=== PATIENT | female | born 1945 | race American Indian/Alaskan Native ===

== ENCOUNTER 2017-03-24 11:12 | Emergency (ER) | payer OTHER ==
[2017-03-24 11:22] VITALS: RESP 16; TEMP 98.3; O2SAT 98; BMI 34.3
--- NOTE | 2017-03-24 11:56 | ED PDOC ---
Arrival/HPI - General Chief Complaint: Lower Extremity Problem/Injury Time Seen by Provider: 03/24/17 11:43 Historian: Patient - History of Present Illness Narrative History of Present Illness (Text): 03/24/17 11:55 71 year old female presents to the emergency department with bilateral knee pain worse with ambulation for the past 2 months. Denies recent trauma or injury. She states pain is better with rest. Patient reports history of right knee surgery. Patient reports she ambulates with a cane at baseline. No other associated symptoms reported. Denies fevers/chills. Time/Duration: > week Symptom Onset: Gradual Associated Symptoms (Text): None Past Medical History - Provider Review Nursing Documentation Reviewed: Yes - Pulmonary Hx Sleep Apnea: Yes - Hematological/Oncological Hx Cancer: Yes (breast left) - Musculoskeletal/Rheumatological Hx Arthritis: Yes - Psychiatric Hx Substance Use: No - Surgical History Hx Thyroidectomy: Yes Family/Social History - Physician Review Nursing Documentation Reviewed: Yes Family/Social History: Unknown Family HX Smoking Status: Never Smoked Hx Alcohol Use: No Hx Substance Use: No Allergies/Home Meds Allergies/Adverse Reactions: Allergies Penicillins Allergy (Verified 03/24/17 12:12) RASH Sulfa (Sulfonamide Antibiotics) Allergy (Verified 03/24/17 12:12) RASH Home Medications: Home Meds Medication Instructions Recorded Confirmed Anastrozole [Arimidex 1 mg Tab] 03/24/17 Aspirin [Adult Low Dose Aspirin EC] 03/24/17 Atorvastatin [Lipitor] 10 mg PO 03/24/17 B1/B2/Niacin/B12/Protease 03/24/17 [B-Complex with B-12 Tablet] Calcium Carb, Citrate/Vit D3 03/24/17 [Calcium + D3 ER Tablet] Levothyroxine Sodium [Unithroid] 03/24/17 Metoclopramide [Reglan] 03/24/17 Omeprazole Magnesium [Prilosec Otc] 03/24/17 Potassium Chloride [Klor-Con 10] 03/24/17 Tramadol HCl [Ultram] 50 mg PO 03/24/17 Triamterene/Hydrochlorothiazid 03/24/17 [Triamterene-Hctz 37.5-25 mg Cp] Zolpidem [Ambien] 03/24/17 Review of Systems - Physician Review All systems were reviewed & negative as marked: Yes Physical Exam - Physical Exam Narrative Physical Exam (Text): - Review of Systems Constitutional: Normal. absent: Fatigue, Weight Change, Fevers Eyes: Normal ENT: Normal Respiratory: Normal absent: SOB, Cough, Sputum Cardiovascular: Normal absent: Chest pain, Palpitations, Syncope Gastrointestinal: Normal absent: Abdominal pain, Diarrhea, Nausea, Vomiting Genitourinary: Normal. absent: Dysuria, Frequency, Hematuria Musculoskeletal: Bilateral knee pain. absent: Arthralgias, Back Pain, Neck Pain Skin: Normal Neurological: Normal absent: Focal Weakness Endocrine: Normal Hemo/Lymphatic: Normal Psychiatric: Normal - Physical exam Patient appears age appropriate, speaking full sentences without difficulty - Systems Exam Head: Present: Atraumatic, Normocephalic Pupils: Present: PERRL Extraocular Muscles: Present: EOMI Conjunctiva: Present: Normal Mouth: Present: Moist Mucous Membranes Neck: Present: Normal Range of Motion. No: MIDLINE TENDERNESS, Paraspinal Tenderness Respiratory/Chest: Present: Clear to Auscultation, Good Air Exchange. No: Respiratory Distress, Accessory Muscle Use, Tachypneic Cardiovascular: Present: Regular Rate and Rhythm, Normal S1, S2, Peripheral Pulses Present. No: Murmurs Abdomen: Present: Normal Bowel Sounds, No: Tenderness, Peritoneal Signs, Rebound, Guarding, Distention Back: Present: Normal Inspection. No: Midline Tenderness, Paraspinal Tenderness Upper Extremity: Present: Normal Inspection. No: Cyanosis, Edema Lower Extremity: Present: Left knee unremarkable. Full active and passive range of motion. Right knee range of motion limited due to pain. Distal neurovascular fully intact. No warmth or redness. Neurological: Present: GCS=15, Speech Normal, cranial nerves II through XII fully intact with no cerebellar abnormality, neuro-sensory fully intact. No focal neurological deficits. Skin: Present: Warm, Dry, Normal Color. No: Rashes Lymphatic: Present: OX3, NI, NC Psychiatric: Present: Alert, Oriented x 3, Normal Insight, Normal Concentration Vital Signs Reviewed: Yes Vital Signs Temp Pulse Resp BP Pulse Ox 03/24/17 11:18 98.3 F 101 H 16 141/84 98 Temperature: Afebrile Blood Pressure: Normal Pulse: Tachycardic Respiratory Rate: Normal Appearance: Positive for: Well-Appearing, Non-Toxic, Comfortable Pain Distress: None Mental Status: Positive for: Alert and Oriented X 3 Medical Decision Making ED Course and Treatment: Impression: 71 year old female presents to the emergency department with bilateral knee pain worse with ambulation for the past week. On physical exam, patient has limited range of motion due to pain in the right knee. Plan: -- XR knee -- Reassess and disposition Progress Notes: 03/24/17 13:34 XR knee read by me shows bilateral knees with no acute fracture or dislocation, loss of joint space and arthritis changes. 03/24/17 14:41 on reevaluation, pt is ambulating with a cane repeat R. knee reexamination shows full active and passive ROM pt states she would like to be dc'd home pt's daughter in the ER. States she will make f/u appt for order entry specialist Pt states she understands to return to the ER right away for new or worsening symptoms or for inability to f/u with PMD or specialist as instructed. Patient states that she fully agrees with and understands discharge instructions. States that she agrees with the plan and disposition. Verbalized and repeated discharge instructions and plan. I have given the patient opportunity to ask any additional questions. 03/24/17 14:43 - RAD Interpretation Radiology Orders: 03/24/17 12:07 KNEE W PATELLA BILAT 3 VIEW [RAD] Stat - Medication Orders Current Medication Orders: Discontinued Medications Ketorolac Tromethamine (Toradol) 30 mg IM STAT STA Stop: 03/24/17 12:08 Last Admin: 03/24/17 12:32 Dose: 30 mg Oxycodone/Acetaminophen (Percocet 5/325 Mg Tab) 1 tab PO STAT STA Stop: 03/24/17 12:08 Last Admin: 03/24/17 12:27 Dose: 1 tab - Scribe Statement The provider has reviewed the documentation as recorded by the Florence Bob Provider Scribe Attestation: All medical record entries made by the Florence were at my direction and personally dictated by me. I have reviewed the chart and agree that the record accurately reflects my personal performance of the history, physical exam, medical decision making, and the department course for this patient. I have also personally directed, reviewed, and agree with the discharge instructions and disposition. Disposition/Present on Arrival - Present on Arrival Any Indicators Present on Arrival: No History of DVT/PE: Yes History of Uncontrolled Diabetes: Yes Urinary Catheter: Yes History of Decub. Ulcer: Yes History Surgical Site Infection Following: None - Disposition Have Diagnosis and Disposition been Completed?: Yes Diagnosis: Knee pain Disposition: HOME/ ROUTINE Disposition Time: 14:44 Patient Plan: Discharge Condition: GOOD Discharge Instructions (ExitCare): Knee Pain (ED), Arthralgia (ED) Additional Instructions: PLEASE RETURN TO THE EMERGENCY DEPARTMENT FOR NEW OR WORSENING SYMPTOMS. RETURN RIGHT AWAY IF YOU CANNOT FOLLOW UP WITH YOUR PRIMARY CARE DOCTOR, CLINIC, OR SPECIALIST IN 1-2 DAYS. Prescriptions: Naproxen [Naprosyn Tab] 250 mg PO Q8 #12 tab oxyCODONE/Acetaminophen [Percocet 5/325 mg Tab] 1 ea PO Q6 PRN #12 tab PRN Reason: Pain, Moderate (4-7) Referrals: Rizwana Jay MD [Primary Care Provider] - Follow up with primary Tono Johnson DO [Staff Provider] - Follow up with primary Napoleon Espinosa MD [Staff Provider] - Follow up with primary
[2017-03-24] MEDS ORDERED: Oxycodone/Acetaminophen 5/325 mg Tab PO STA (12:07)
--- NOTE | 2017-03-24 14:46 | RAD ---
PROCEDURE: Bilateral Knee Radiographs. HISTORY: pain COMPARISON: None. FINDINGS: BONES: Right Knee: Normal. No fracture. Left Knee: Normal. No fracture. JOINTS: Right Knee: There is severe joint space narrowing in the medial compartment. Meniscal calcifications in the lateral compartment Left knee: As above SOFT TISSUES: Right Knee: Multiple loose bodies are seen posteriorly in the right knee Left Knee: A single loose body seen posteriorly JOINT EFFUSION: Right Knee: None. Left Knee: None. OTHER FINDINGS: None. IMPRESSION: Severe degenerative changes in the medial compartments. Multiple calcified loose bodies right greater than left
[2017-03-24 14:50] VITALS: BP 121/50; PULSE 102
== END 2017-03-24 15:05 | disposition home or self-care (01) ==
LOC: ED 11:12
DX: M25.561 Pain in right knee (principal); M25.562 Pain in left knee
CPT/HCPCS: 73562; 96372; 99284; J1885

== ENCOUNTER 2017-08-29 17:26 | Inpatient (IN) | payer OTHER ==
[2017-08-29] MEDS ORDERED: Morphine 4 mg/ml ISec IVP STA (19:49)
--- NOTE | 2017-08-29 19:57 | ED PDOC ---
Arrival/HPI - General Chief Complaint: Lower Extremity Problem/Injury Time Seen by Provider: 08/29/17 18:40 Historian: Patient - History of Present Illness Narrative History of Present Illness (Text): 08/29/17 19:50 A 71 year old female whose past medical history includes, hypothyroidism, hyperlipidemia, presents to the emergency department with chronic bilateral knee pain. She states that she has been having the pain for 6 months and was seen in the emergency department at that time, but refused admission. Since then , she states that she has fallen at lest 6 times having frequent falls multiple times a day. She states that her knees get weak and give out. She states that she does not leave her house because she is afraid she may fall outside. Adds that she lives alone. She has not yet been seen by her PMD. The patient denies fevers, chills, headache, chest pain, shortness of breath, dyspnea on exertion, cough, abdominal pain, nausea, vomiting, diarrhea, back pain, neck pain, urinary /bowel changes, or any other complaint. Time/Duration: Other (6 Months) Symptom Onset: Sudden Symptom Course: Unchanged Activities at Onset: Rest Context: Home Past Medical History - Provider Review Nursing Documentation Reviewed: Yes - Infectious Disease Hx of Infectious Diseases: None - Cardiac Hx Cardiac Disorders: No - Pulmonary Hx Respiratory Disorders: Yes Hx Sleep Apnea: Yes - Neurological Hx Neurological Disorder: No - HEENT Hx HEENT Disorder: Yes Other/Comment: glasses - Renal Hx Renal Disorder: Yes Other/Comment: one kidney removed - Endocrine/Metabolic Hx Endocrine Disorders: No - Hematological/Oncological Hx Blood Disorders: Yes Hx Cancer: Yes (breast left) - Integumentary Hx Dermatological Disorder: No - Musculoskeletal/Rheumatological Hx Musculoskeletal Disorders: Yes Hx Arthritis: Yes - Gastrointestinal Hx Gastrointestinal Disorders: No - Genitourinary/Gynecological Hx Genitourinary Disorders: No - Psychiatric Hx Psychophysiologic Disorder: No Hx Substance Use: No - Surgical History Hx Thyroidectomy: Yes - Anesthesia Hx Anesthesia: Yes Hx Anesthesia Reactions: No Family/Social History - Physician Review Nursing Documentation Reviewed: Yes Family/Social History: No Known Family HX Smoking Status: Never Smoked Hx Alcohol Use: No Hx Substance Use: No Allergies/Home Meds Allergies/Adverse Reactions: Allergies Penicillins Allergy (Verified 08/29/17 17:49) RASH Sulfa (Sulfonamide Antibiotics) Allergy (Verified 08/29/17 17:49) RASH Home Medications: Home Meds Medication Instructions Recorded Confirmed Anastrozole [Arimidex 1 mg Tab] 1 mg PO DAILY 03/24/17 08/29/17 Aspirin [Adult Low Dose Aspirin EC] 81 mg PO DAILY 03/24/17 08/29/17 Atorvastatin [Lipitor] 10 mg PO DAILY 03/24/17 08/29/17 B1/B2/Niacin/B12/Protease 1 tab PO DAILY 03/24/17 08/29/17 [B-Complex with B-12 Tablet] Calcium Carb, Citrate/Vit D3 1 tab PO DAILY 03/24/17 08/29/17 [Calcium + D3 ER Tablet] Levothyroxine Sodium [Unithroid] 100 mcg PO DAILY 03/24/17 08/29/17 Omeprazole Magnesium [Prilosec Otc] 20 mg PO DAILY 03/24/17 08/29/17 Potassium Chloride [Klor-Con 10] 1 tab PO DAILY 03/24/17 08/29/17 Triamterene/Hydrochlorothiazid 1 tab PO DAILY 03/24/17 08/29/17 [Triamterene-Hctz 37.5-25 mg Cp] Zolpidem [Ambien] 10 mg PO HS 03/24/17 08/29/17 Review of Systems - Physician Review All systems were reviewed & negative as marked: Yes - Review of Systems Constitutional: absent: Fevers, Night Sweats ENT: absent: Sore Throat Respiratory: absent: SOB, Cough Cardiovascular: absent: Chest Pain, DAILEY Gastrointestinal: absent: Abdominal Pain, Stool Changes, Diarrhea, Nausea, Vomiting Musculoskeletal: Other (Bilateral knee pain). absent: Back Pain, Neck Pain Neurological: absent: Headache, Dizziness Physical Exam Vital Signs Reviewed: Yes Vital Signs Temp Pulse Resp BP Pulse Ox 08/29/17 17:57 98.0 F 89 17 134/84 100 Temperature: Afebrile Blood Pressure: Normal Pulse: Regular Respiratory Rate: Normal Appearance: Positive for: Well-Appearing, Non-Toxic, Comfortable Pain Distress: Mild Mental Status: Positive for: Alert and Oriented X 3 - Systems Exam Head: Present: Atraumatic, Normocephalic Pupils: Present: PERRL Extroacular Muscles: Present: EOMI Conjunctiva: Present: Normal Mouth: Present: Moist Mucous Membranes Neck: Present: Normal Range of Motion Respiratory/Chest: Present: Clear to Auscultation, Good Air Exchange. No: Respiratory Distress, Accessory Muscle Use Cardiovascular: Present: Regular Rate and Rhythm, Normal S1, S2. No: Murmurs Abdomen: Present: Normal Bowel Sounds. No: Tenderness, Distention, Peritoneal Signs Back: Present: Normal Inspection Upper Extremity: Present: Normal Inspection. No: Cyanosis, Edema Lower Extremity: Present: Tenderness (Knees tender to light touch.), Swelling ( Knee swelling). No: Normal ROM (Limited ROM secondary to pain.) Neurological: Present: GCS=15, CN II-XII Intact, Speech Normal Skin: Present: Warm, Dry, Normal Color. No: Rashes Psychiatric: Present: Alert, Oriented x 3, Normal Insight, Normal Concentration Medical Decision Making ED Course and Treatment: 08/29/17 20:00 Impression: A 72 year old female presents to the emergency department with b/l knee pain. Plan: -- EKG -- Chest/ Knee X-ray -- Labs -- Urinalysis -- Morphine and Zofran -- Reassess and disposition Prior Visits: Notes and results from previous visits were reviewed. Patient was last seen in the emergency department on 03/24/17. Patient was seen b/l knee pain. Patient was discharged home. Progress Notes: EKG: NSR at 92 bpm, (-) acute ST changes, as read by DAVID. CXR : NAD, as read by DAVID XR b/l knees : (+) moderate to severe DJD with decrease in joint space, as read by PA Labs reviewed : K 9.8, but hemolyzed. Repeat CMP ordered. On re-evaluation, patient is sitting comfortably in bed, reports improvement of her knee pain. States that her K is normally low and she is supposed to take K supplements daily, however has not taken them for a couple of days. Denies any muscle aches, CP, palpitations, has no additional complaints currently. Repeat CMP shows K 2.8. KCL 40 mEq PO x 2 ordered. Diagnostic results d/w the patient. Notified of plan for admission, which she agrees to. Case d/w Dr. Dodd , agrees with plan for inpatient admission. - Lab Interpretations Lab Results: 08/29/17 19:55 08/29/17 21:40 Lab Results 08/29/17 21:40: Sodium 144, Potassium 2.8 L* D, Chloride 104, Carbon Dioxide 30 , Anion Gap 13, BUN 18, Creatinine 0.9, Est GFR ( Amer) > 60, Est GFR ( Non-Af Amer) > 60, Random Glucose 87, Calcium 11.0 H, Total Bilirubin 1.2, AST 21, ALT 20, Alkaline Phosphatase 133 H D, Total Protein 7.7, Albumin 4.0, Globulin 3.6, Albumin/Globulin Ratio 1.1 08/29/17 20:00: Sodium 136, Potassium 9.8 H*, Chloride 101, Carbon Dioxide 28, Anion Gap 17, BUN 19, Creatinine 0.9, Est GFR ( Amer) > 60, Est GFR (Non- Af Amer) > 60, Random Glucose 85, Calcium 11.1 H, Total Bilirubin 4.1 H, AST 103 H, ALT < 6 L, Alkaline Phosphatase 196 H, Total Protein 10.5 H, Albumin 5.8 H, Globulin 4.7, Albumin/Globulin Ratio 1.2 08/29/17 19:55: WBC 10.1, RBC 4.48, Hgb 13.3, Hct 39.5, MCV 88.2, MCH 29.7, MCHC 33.7, RDW 16.7 H, Plt Count 358, MPV 10.3, Gran % 46.5 L, Lymph % (Auto) 42.0 H, [facility] % (Auto) 8.1 H, Eos % (Auto) 3.0, Baso % (Auto) 0.4, Gran # 4.70, Lymph # 4.3 H, [facility] # 0.8 H, Eos # 0.3, Baso # 0.04 I have reviewed the lab results: Yes - RAD Interpretation Radiology Orders: 08/29/17 19:22 CHEST TWO VIEWS (PA/LAT) [RAD] Stat 08/29/17 19:25 KNEE W PATELLA BILAT 3 VIEW [RAD] Stat - EKG Interpretation Interpreted by ED Physician: Yes Type: 12 lead EKG - Medication Orders Current Medication Orders: Anastrozole (Arimidex 1 Mg Tab) 1 mg PO DAILY RENATO Aspirin (Ecotrin) 81 mg PO DAILY RENATO Atorvastatin Calcium (Lipitor) 10 mg PO DAILY RENATO Levothyroxine Sodium (Synthroid) 100 mcg PO DAILY RENATO Pantoprazole Sodium (Protonix Inj) 40 mg IVP DAILY RENATO Triamterene/HCTZ (Dyazide 25 Mg-37.5 Mg) cap PO DAILY RENATO Zolpidem Tartrate (Ambien) 10 mg PO ONCE ONE PRN Reason: Protocol Stop: 08/30/17 01:01 Discontinued Medications Morphine Sulfate (Morphine) 4 mg IVP STAT STA Stop: 08/29/17 19:50 Last Admin: 08/29/17 20:12 Dose: 4 mg MAR Pain Assessment Document 08/29/17 20:12 SHERRI (Rec: 08/29/17 20:12 SHERRI [facility]) Pain Reassessment Is this a pain reassessment? No IVP Administration Document 08/29/17 20:12 SHERRI (Rec: 08/29/17 20:12 SHERRI [facility]) Charges for Administration # of IVP Administrations 1 Ondansetron HCl (Zofran Inj) 4 mg IVP STAT STA Stop: 08/29/17 19:50 Last Admin: 08/29/17 20:12 Dose: 4 mg IVP Administration Document 08/29/17 20:12 SHERRI (Rec: 08/29/17 20:12 SHERRI [facility]) Charges for Administration # of IVP Administrations 1 Potassium Chloride (Potassium Chloride Oral Soln) 40 meq PO STAT STA Stop: 08/29/17 21:56 Last Admin: 08/29/17 22:18 Dose: 40 meq Potassium Chloride (Potassium Chloride Oral Soln) 40 meq PO ONCE ONE Stop: 08/29/17 23:01 Last Admin: 08/29/17 23:18 Dose: 40 meq - PA / FORENSIC DOCUMENT EXAMINER / Resident Statement MD/DO has reviewed & agrees with the documentation as recorded. - Scribe Statement The provider has reviewed the documentation as recorded by the Scribe Jaz Antonio Provider Scribe Attestation: All medical record entries made by the Nenaibsuleiman were at my direction and personally dictated by me. I have reviewed the chart and agree that the record accurately reflects my personal performance of the history, physical exam, medical decision making, and the department course for this patient. I have also personally directed, reviewed, and agree with the discharge instructions and disposition. Disposition/Present on Arrival - Present on Arrival Any Indicators Present on Arrival: No History of DVT/PE: No History of Uncontrolled Diabetes: No Urinary Catheter: No History of Decub. Ulcer: No History Surgical Site Infection Following: None - Disposition Have Diagnosis and Disposition been Completed?: Yes Diagnosis: Frequent falls, Knee pain, bilateral, Hypokalemia Disposition: HOSPITALIZED Disposition Time: 00:09 Patient Plan: Admission (to remote tele) Patient Problems: Current Active Problems Problem Status Onset Frequent falls Acute Knee pain, bilateral Acute Hypokalemia Acute Condition: STABLE [facility] - Follow up with primary Forms: Talk Local ([place] Citizen)
[2017-08-29 20:23] LABS: BASO # 0.04 K/mm3 (0.0-2.0); BASO % 0.4 % (0.0-3.0); EOS # 0.3 (0.0-0.7); GRAN # 4.7 (1.4-6.5); GRAN % 46.5 % (50.0-68.0); HEMATOCRIT 39.5 % (36.0-48.0); LYMPH # 4.3 (1.2-3.4); MEAN CELL VOLUME 88.2 fl (80.0-105.0); MEAN CORPUSCULAR HEMOGLOBIN 29.7 pg (25.0-35.0); MEAN CORPUSCULAR HGB CONC 33.7 g/dl (31.0-37.0); MEAN PLATELET VOLUME 10.3 fl (7.0-11.0); MONO # 0.8 (0.1-0.6); MONO % 8.1 % (1.0-6.0); RED CELL DISTRIBUTION WIDTH 16.7 % (11.5-14.5); WHITE BLOOD COUNT 10.1 10^3/ul (4.5-11.0)
[2017-08-29 20:39] LABS: ALB/GLOB RATIO 1.2 (1.1-1.8); ALKALINE PHOSPHATASE 196 U/L (38-126); AST/SGOT 103 U/L (14-36); BLOOD UREA NITROGEN 19 mg/dL (7-21); CALCIUM 11.1 mg/dL (8.4-10.5); CARBON DIOXIDE 28 mmol/L (21-33); CHLORIDE 101 mmol/L (98-107); GFR AFRICAN-AMERICAN > 60; GLUCOSE,RANDOM 85 mg/dL (70-110); SODIUM 136 mmol/L (132-148); TOTAL PROTEIN 10.5 g/dL (5.8-8.3)
[2017-08-29 20:40] LABS: ALT/SGPT < 6 U/L (7-56)
[2017-08-29 20:43] LABS: POTASSIUM 9.8 mmol/L (3.6-5.0)
[2017-08-29 20:44] LABS: BILIRUBIN,TOTAL 4.1 mg/dL (0.2-1.3)
[2017-08-29] MEDS ORDERED: Insulin Regular 1 UNITS/0.01 ML ML IV STA (21:02)
[2017-08-29] MEDS ORDERED: Dextrose 50% SYRINGE Inj (50 ml) IVP STA (21:02)
[2017-08-29] MEDS ORDERED: Albuterol 0.5% Inhal Sol (5 mg/ ml) 20 ml IH STA (21:02)
[2017-08-29] MEDS ORDERED: Sod Polystyrene Sulf 15 gm/60 ml Susp PO STA (21:04)
[2017-08-29 21:50] LABS: ALB/GLOB RATIO 1.1 (1.1-1.8); ALKALINE PHOSPHATASE 133 U/L (38-126); ALT/SGPT 20 U/L (7-56); AST/SGOT 21 U/L (14-36); BILIRUBIN,TOTAL 1.2 mg/dL (0.2-1.3); BLOOD UREA NITROGEN 18 mg/dL (7-21); CARBON DIOXIDE 30 mmol/L (21-33); CHLORIDE 104 mmol/L (98-107); GFR AFRICAN-AMERICAN > 60; GLUCOSE,RANDOM 87 mg/dL (70-110); SODIUM 144 mmol/L (132-148); TOTAL PROTEIN 7.7 g/dL (5.8-8.3)
[2017-08-29 21:54] LABS: POTASSIUM 2.8 mmol/L (3.6-5.0)
[2017-08-29] MEDS ORDERED: Potassium Chloride 20 mEq/15 ml LIQ UD PO STA (21:55)
[2017-08-29] MEDS ORDERED: Potassium Chloride 20 mEq/15 ml LIQ UD PO ONE (23:00)
[2017-08-30] MEDS ORDERED: Morphine 2 mg/ml ISec IVP PRN ×2 (00:59→01:00)
--- NOTE | 2017-08-30 01:04 | CP.PCM.HP ---
<Judie Harmon - Last Filed: 08/30/17 02:34> History of Present Illness - History of Present Illness History of Present Illness: CC: "I fell on my knees" HPI: Patient is a 71 year old female with past medical history of L breast CA s/p tumor resection and radiation, hypothyroidism, HTN, HLD presents to the ED for chronic bilateral knee pain, unsteadiness and recurrent falls for the past 6 months. Patient states that she was evaluated for the same complaint in March, and at that time did not wish to be admitted because she needed to take care of her daughter. Since that time her unsteadiness has gotten worse. Today she states that she felt off balance and her knees got weak which lead her to fall on both knees. Denies any LOC and head trauma. Ambulates at home with a cane. Offers no other complaints at this time. Denies headaches, dizziness, cp, palpitations, sob, abdominal pain, urinary symptoms, changes in bowel habits. ED course: Morphine 4mg, Zofran, Kcl 40meq x 2 Allergies: Penicillin, Sulfa Medications: Ambien 10mg HS, Triamterene/HCTZ 37.5/25mg, KCl, Omeprazole magnesium, Lipitor 10mg, ASA 81mg, Anastrazole 1mg daily Medical Hx: Hypothyroidism, DM, HTN, Breast CA Surgical Hx: Thyroidectomy, R knee surgery > 20 years ago, L breast tumor resection Social Hx: Denies alcohol, tobacco, drug use; lives at home with daughter who has Cerebral palsy, ambulates with a cane Family Hx: Denies Present on Admission - Present on Admission Any Indicators Present on Admission: No Past Patient History - Infectious Disease Hx of Infectious Diseases: None - Past Social History Smoking Status: Never Smoked - CARDIAC Hx Cardiac Disorders: No - PULMONARY Hx Respiratory Disorders: Yes Hx Sleep Apnea: Yes - NEUROLOGICAL Hx Neurological Disorder: No - HEENT Hx HEENT Problems: Yes Other/Comment: glasses - RENAL Hx Chronic Kidney Disease: Yes Other/Comment: one kidney removed - ENDOCRINE/METABOLIC Hx Endocrine Disorders: No - HEMATOLOGICAL/ONCOLOGICAL Hx Blood Disorders: Yes Hx Cancer: Yes (breast left) - INTEGUMENTARY Hx Dermatological Problems: No - MUSCULOSKELETAL/RHEUMATOLOGICAL Hx Musculoskeletal Disorders: Yes Hx Arthritis: Yes - GASTROINTESTINAL Hx Gastrointestinal Disorders: No - GENITOURINARY/GYNECOLOGICAL Hx Genitourinary Disorders: No - PSYCHIATRIC Hx Psychophysiologic Disorder: No Hx Substance Use: No - SURGICAL HISTORY Hx Thyroidectomy: Yes - ANESTHESIA Hx Anesthesia: Yes Hx Anesthesia Reactions: No Meds Allergies/Adverse Reactions: Allergies Allergy/AdvReac Type Severity Reaction Status Date / Time ibuprofen Allergy ITCHING Verified 08/30/17 04:52 Penicillins Allergy RASH Verified 08/30/17 04:52 Sulfa (Sulfonamide Allergy RASH Verified 08/30/17 04:52 Antibiotics) Physical Exam - Constitutional Appears: Well, Non-toxic, No Acute Distress - Head Exam Head Exam: ATRAUMATIC, NORMAL INSPECTION, NORMOCEPHALIC - Eye Exam Eye Exam: EOMI, Normal appearance Pupil Exam: NORMAL ACCOMODATION, PERRL - ENT Exam ENT Exam: Mucous Membranes Moist - Neck Exam Neck exam: Positive for: Full Rom - Respiratory Exam Respiratory Exam: Clear to Auscultation Bilateral, NORMAL BREATHING PATTERN. absent: Rales, Rhonchi, Wheezes - Cardiovascular Exam Cardiovascular Exam: REGULAR RHYTHM, +S1, +S2 - GI/Abdominal Exam GI & Abdominal Exam: Normal Bowel Sounds, Soft. absent: Guarding, Rebound, Rigid, Tenderness - Extremities Exam Extremities exam: Positive for: pedal pulses present. Negative for: calf tenderness Additional comments: Marked tenderness to superior aspect of right knee Right knee appears more swollen compared to the left No erythema or effusions appreciated Full active ROM - Back Exam Back exam: NORMAL INSPECTION - Neurological Exam Neurological exam: Alert, Oriented x3 - Psychiatric Exam Psychiatric exam: Anxious, Normal Affect - Skin Skin Exam: Dry, Normal Color, Warm Results - Vital Signs Recent Vital Signs: Last Vital Signs Temp 98.0 F 08/29/17 17:57 Pulse 89 08/29/17 17:57 Resp 17 08/29/17 17:57 BP 134/84 08/29/17 17:57 Pulse Ox 100 08/29/17 17:57 - Labs Result Diagrams: 08/29/17 19:55 08/29/17 21:40 Labs: Laboratory Results - last 24 hr 08/29/17 08/29/17 08/29/17 19:55 20:00 21:40 WBC 10.1 RBC 4.48 Hgb 13.3 Hct 39.5 MCV 88.2 MCH 29.7 MCHC 33.7 RDW 16.7 H Plt Count 358 MPV 10.3 Gran % 46.5 L Lymph % (Auto) 42.0 H [place] % (Auto) 8.1 H Eos % (Auto) 3.0 Baso % (Auto) 0.4 Gran # 4.70 Lymph # 4.3 H [place] # 0.8 H Eos # 0.3 Baso # 0.04 Sodium 136 144 Potassium 9.8 H* 2.8 L* D Chloride 101 104 Carbon Dioxide 28 30 Anion Gap 17 13 BUN 19 18 Creatinine 0.9 0.9 Est GFR ( Amer) > 60 > 60 Est GFR (Non-Af Amer) > 60 > 60 Random Glucose 85 87 Calcium 11.1 H 11.0 H Total Bilirubin 4.1 H 1.2 AST 103 H 21 ALT < 6 L 20 Alkaline Phosphatase 196 H 133 H D Total Protein 10.5 H 7.7 Albumin 5.8 H 4.0 Globulin 4.7 3.6 Albumin/Globulin Ratio 1.2 1.1 Assessment & Plan - Assessment and Plan (Free Text) Assessment: Patient is a 71 year old female with past medical history of L breast CA s/p tumor resection and radiation, hypothyroidism, HTN, HLD presents to the ED for chronic bilateral knee pain, unsteadiness and recurrent falls for the past 6 months Plan: 1. Chronic B/L knee pain, Gait instability, recurrent falls -Stable, afebrile -Place on observation -Knee x ray showing no acute fractures; f/u official read -Pain control - morphine 1mg q4H prn moderate pain, morphine 2mg q4H prn severe pain, -As this is a chronic issue, will recommend outpatient ortho follow up -High risk fall protocol -PT eval ordered, SW consulted ordered 2. Hypokalemia -Potassium was 9.8 initially but was hemolyzed, repeat K+ was 2.8 -EKG showed NSR at 92 bpm, no ST changes -Patient was given KCl 40meq x 2 -Will continue to monitor BMPs closely 3. Hypertension -Currently Normatensive -Will start home medications -Continue to monitor 4. Hypothyroidism -Continue home medication 5. Breast CA s/p tumor resection, radiation -Continue Anasrozole 6. Hyperlipidemia -Continue Lipitor 10mg , ASA 81mg GI/DVT ppx Protonix 40mg IVP Lovenox 30mg SQ Plan discussed with Dr Dodd <Sandy Dodd - Last Filed: 08/30/17 05:30> Results - Vital Signs Recent Vital Signs: Last Vital Signs Temp 97.9 F 08/30/17 03:36 Pulse 78 08/30/17 05:14 Resp 20 08/30/17 03:36 BP 159/89 H 08/30/17 03:36 Pulse Ox 99 08/30/17 01:26 - Labs Result Diagrams: 08/29/17 19:55 08/29/17 21:40 Labs: Laboratory Results - last 24 hr 08/30/17 02:15 Urine Color Yellow Urine Appearance Sl cloudy Urine pH 6.0 Ur Specific [place] 1.025 Urine Protein Trace H Urine Glucose (UA) Negative Urine Ketones Trace H Urine Blood Negative Urine Nitrate Negative Urine Bilirubin Small H Urine Urobilinogen 0.2 Ur Leukocyte Esterase Negative Urine RBC 0 - 2 Urine WBC 0 - 2 Ur Epithelial Cells 1 - 3 Calcium Oxalate Crystal Few Attending/Attestation - Attestation I have personally seen and examined this patient.: Yes I have fully participated in the care of the patient.: Yes I have reviewed all pertinent clinical information: Yes Notes (Text): 08/30/17 05:22 Patient was seen when she was in bed # 14 in the ER. Agree with history, physical examination, assessment and plan. Following should be noted. 71 year old woman came in with both knee severe pain, fall 3 days ago, falls 6 times since March 2017, inability to walk, hypokalemia, hypercalcemia, leukocytosis,elevated alkaline phosphatase. 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
[2017-08-30 02:31] LABS: URINE BILIRUBIN SMALL (NEGATIVE); URINE BLOOD NEGATIVE (NEGATIVE); URINE GLUCOSE (UA) NEGATIVE (NEGATIVE); URINE KETONE TRACE mg/dL (NEGATIVE); URINE LEUKOCYTE ESTERASE NEGATIVE Leu/uL (NEGATIVE); URINE PROTEIN TRACE mg/dL (<30 mg/dL); URINE UROBILINOGEN 0.2 E.U./dL (<1 E.U./dL)
[2017-08-30 02:44] LABS: URINE APPEARANCE SL CLOUDY (CLEAR); URINE COLOR YELLOW (YELLOW)
[2017-08-30 02:52] LABS: URINE RBC 0 - 2 /hpf (0-2)
[2017-08-30 02:53] LABS: URINE CALCIUM OXALATE CRYSTALS FEW /hpf; URINE WBC 0 - 2 /hpf (0-6)
[2017-08-30 04:29] VITALS: RESP 20; BMI 29.1
[2017-08-30 06:29] LABS: BASO # 0.03 K/mm3 (0.0-2.0); BASO % 0.4 % (0.0-3.0); EOS # 0.5 (0.0-0.7); EOS % 5.8 % (1.5-5.0); GRAN # 3.89 (1.4-6.5); GRAN % 49.8 % (50.0-68.0); HEMATOCRIT 34.2 % (36.0-48.0); LYMPH # 2.8 (1.2-3.4); LYMPH % 35.7 % (22.0-35.0); MEAN CELL VOLUME 89.3 fl (80.0-105.0); MEAN CORPUSCULAR HEMOGLOBIN 29.2 pg (25.0-35.0); MEAN CORPUSCULAR HGB CONC 32.7 g/dl (31.0-37.0); MEAN PLATELET VOLUME 9.9 fl (7.0-11.0); MONO # 0.7 (0.1-0.6); MONO % 8.3 % (1.0-6.0); RED CELL DISTRIBUTION WIDTH 16.8 % (11.5-14.5); WHITE BLOOD COUNT 7.8 10^3/ul (4.5-11.0)
[2017-08-30 07:06] LABS: ALB/GLOB RATIO 1.1 (1.1-1.8); ALKALINE PHOSPHATASE 113 U/L (38-126); ALT/SGPT 23 U/L (7-56); AST/SGOT 28 U/L (14-36); BILIRUBIN,TOTAL 1.1 mg/dL (0.2-1.3); BLOOD UREA NITROGEN 16 mg/dL (7-21); CALCIUM 10.9 mg/dL (8.4-10.5); CARBON DIOXIDE 31 mmol/L (21-33); CHLORIDE 104 mmol/L (98-107); GFR AFRICAN-AMERICAN > 60; GLUCOSE,RANDOM 101 mg/dL (70-110); POTASSIUM 3.3 mmol/L (3.6-5.0); SODIUM 143 mmol/L (132-148); TOTAL PROTEIN 6.9 g/dL (5.8-8.3)
[2017-08-30] MEDS: Levothyroxine 100 MCG TAB PO SCH (08:13)
--- NOTE | 2017-08-30 08:18 | RAD ---
HISTORY: frequent falls COMPARISON: No prior. TECHNIQUE: Chest PA and lateral FINDINGS: LUNGS: No active pulmonary disease. PLEURA: No significant pleural effusion identified. No pneumothorax apparent. CARDIOVASCULAR: Normal. OSSEOUS STRUCTURES: No significant abnormalities. VISUALIZED UPPER ABDOMEN: Normal. OTHER FINDINGS: None. IMPRESSION: No active disease.
--- NOTE | 2017-08-30 08:20 | RAD ---
PROCEDURE: Bilateral Knee Radiographs. HISTORY: pain COMPARISON: None. FINDINGS: BONES: Right Knee: Normal. No fracture. Left Knee: Normal. No fracture. JOINTS: Right Knee: There is severe joint space narrowing with bony sclerosis and osteophyte formation in the medial compartment bilaterally. Meniscal calcifications can be seen in the lateral compartment consistent with chondrocalcinosis. Moderate degenerative changes are also seen in the patellofemoral joints Left knee: As above SOFT TISSUES: Right Knee: Normal. Left Knee: Normal. JOINT EFFUSION: Right Knee: None. Left Knee: None. OTHER FINDINGS: None. IMPRESSION: There is severe joint space narrowing with bony sclerosis and osteophyte formation in the medial compartment bilaterally. Meniscal calcifications can be seen in the lateral compartment consistent with chondrocalcinosis. Moderate degenerative changes are also seen in the patellofemoral joints
[2017-08-30] MEDS: Enoxaparin 30 mg Syringe SC SCH (09:30)
[2017-08-30] MEDS ORDERED: hydroCHLOROthiazide-Triamterene 25 mg-37.5 mg Cap UD PO SCH (10:00)
--- NOTE | 2017-08-30 10:11 | CARD ---
APPROVED REPORT EKG Measurement Heart [id number] <Conclusion> Normal sinus rhythm Minimal voltage criteria for LVH, may be normal variant Borderline ECG
[2017-08-30] MEDS ORDERED: Triamcinolone Acetonide 40 mg/mL Inj IU ONE ×2 (12:46→13:00)
[2017-08-30] MEDS ORDERED: Bupivacaine 0.25% Inj(30mL) IJ ONE (12:47)
[2017-08-30] MEDS ORDERED: Bismuth Subsalicylate 262 mg/15 ml Sus (240 ml) PO ONE (18:14)
--- NOTE | 2017-08-30 19:04 | CON ---
DATE: 08/30/2017 INPATIENT CONSULTATION REASON FOR CONSULT: Bilateral knee pain. HISTORY OF PRESENT ILLNESS: This is a 71-year-old female who presents with longstanding bilateral knee pain. She complains of pain with stiffness. She said the pain is worse with activity and weightbearing. She also noticed that her legs are more curved. She said that she had right knee surgery over 20 years ago. She does not recall what was specifically done. She denies any new trauma. She is admitted by the medical service on this admission for hypokalemia. PHYSICAL EXAMINATION: GENERAL: This is a female in no apparent distress. She is awake, alert and oriented x3. EXTREMITIES: Evaluation of bilateral knees showed she has some varus malalignment bilaterally, slightly more pronounced on the right than on the left. On the right side, no significant infusion is appreciated; however, she does have severe bilateral medial joint line tenderness to palpation. She has range of motion on the right side for about -5 to about 95 degrees and on the left from just about 0 to about 95 to 100 degrees of flexion. Her valgus malalignment on the right side is almost passively correctable to neutral. Her thigh and calf are soft and nontender bilaterally. She has 5/5 strength in bilateral knee flexion and extension. She has palpable distal pulses. LABORATORY DATA: X-rays of both the knees, AP lateral, and sunrise views, show no acute fracture dislocations, but advanced degenerative changes with complete medial compartment narrowing bilaterally. IMPRESSION: Bilateral knee arthritis. PLAN: At this point, we discussed the treatment options for now. She wants to try steroid injection in both the knees to help relief her pain. I did explain to her that while this can give her temporary relief that ultimately knee replacement would most reliably give her the best long-term relief. She understands this and would like to follow up and discuss this more as an outpatient. For now, both knees are prepped sterilely and approximately 40 mg of Kenalog plus Marcaine was injected. She tolerated the procedure well. I will follow up with her as an outpatient, and for now, we will monitor her blood sugar for any elevation. Antolin Camacho MD
[2017-08-31 06:23] LABS: GRAN # 7.13 (1.4-6.5); LYMPH # 2.4 (1.2-3.4); LYMPH % 24.8 % (22.0-35.0); MEAN CELL VOLUME 87.9 fl (80.0-105.0); MEAN CORPUSCULAR HEMOGLOBIN 29.2 pg (25.0-35.0); MEAN CORPUSCULAR HGB CONC 33.2 g/dl (31.0-37.0); MEAN PLATELET VOLUME 10.2 fl (7.0-11.0); MONO # 0.2 (0.1-0.6); MONO % 2.2 % (1.0-6.0); RED CELL DISTRIBUTION WIDTH 16.5 % (11.5-14.5); WHITE BLOOD COUNT 9.8 10^3/ul (4.5-11.0)
[2017-08-31 06:31] LABS: ALB/GLOB RATIO 1.1 (1.1-1.8); ALKALINE PHOSPHATASE 128 U/L (38-126); ALT/SGPT 24 U/L (7-56); AST/SGOT 28 U/L (14-36); BILIRUBIN,TOTAL 0.9 mg/dL (0.2-1.3); BLOOD UREA NITROGEN 17 mg/dL (7-21); CARBON DIOXIDE 28 mmol/L (21-33); CHLORIDE 107 mmol/L (95-110); GFR AFRICAN-AMERICAN > 60; GLUCOSE,RANDOM 165 mg/dL (70-110); MAGNESIUM 2.2 mg/dL (1.7-2.2); PHOSPHOROUS 1.6 mg/dL (2.5-4.5); POTASSIUM 3.7 mmol/L (3.6-5.0); SODIUM 142 mmol/L (132-148); TOTAL PROTEIN 7.6 g/dL (5.8-8.3)
[2017-08-31] MEDS: Levothyroxine 100 MCG TAB PO SCH (08:28)
[2017-08-31] MEDS: Enoxaparin 30 mg Syringe SC SCH (10:53)
[2017-08-31] MEDS ORDERED: Oxycodone/Acetaminophen 2.5/325 mg Tab PO PRN (13:07)
[2017-08-31] MEDS ORDERED: Potassium & Sodium Phosphate PO ONE (13:08)
--- NOTE | 2017-08-31 16:04 | CP.PCM.PN ---
<Danish Mc - Last Filed: 08/31/17 15:51> Subjective - Date & Time of Evaluation Date of Evaluation: 08/31/17 Time of Evaluation: 07:20 - Subjective Subjective: IM Progress Note for Hospitalist Service Patient seen and examined at bedside. No acute complaints this AM. S/p corticosteroid injections into each knee yesterday by Ortho. Patient reports pain in both knees overnight, but report improved. Denies chest pain, nausea, emesis, diarrhea, focal weakness. Walked with PT, who reports unsteady gait and recs DENILSON. Patient initially resistant to DENILSON, but after risks of not going and benefits of going explained to patient, she became amenable to placement for rehab. 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 Objective - Vital Signs/Intake and Output Vital Signs (last 24 hours): Temp Pulse Resp BP Pulse Ox 97.7 F 77 20 140/80 100 08/31/17 08:31 08/31/17 13:55 08/31/17 08:31 08/31/17 13:55 08/31/17 08:31 Intake and Output: 08/31/17 08/31/17 06:59 18:59 Intake Total 1140 Balance 1140 - Medications Medications: Current Medications Acetaminophen (Tylenol 325mg Tab) 650 mg PO Q6H PRN PRN Reason: Pain, Mild (1-3) Anastrozole (Arimidex 1 Mg Tab) 1 mg PO DAILY ON LICENSE OF [facility] Last Admin: 08/31/17 10:53 Dose: 1 mg Aspirin (Ecotrin) 81 mg PO DAILY ON LICENSE OF [facility] Last Admin: 08/31/17 10:52 Dose: 81 mg Atorvastatin Calcium (Lipitor) 10 mg PO DAILY ON LICENSE OF [facility] Last Admin: 08/31/17 10:52 Dose: 10 mg Enoxaparin Sodium (Lovenox) 30 mg SC DAILY ON LICENSE OF [facility] PRN Reason: Protocol Last Admin: 08/31/17 10:53 Dose: 30 mg Levothyroxine Sodium (Synthroid) 100 mcg PO ACB ON LICENSE OF [facility] Last Admin: 08/31/17 08:28 Dose: 100 mcg Lisinopril (Zestril) 5 mg PO DAILY ON LICENSE OF [facility] Last Admin: 08/31/17 13:55 Dose: 5 mg Oxycodone/Acetaminophen (Percocet 2.5/325 Mg Tab) 1 tab PO Q6H PRN PRN Reason: Pain, moderate (4-7) Last Admin: 08/31/17 13:46 Dose: 1 tab Pantoprazole Sodium (Protonix Inj) 40 mg IVP DAILY [facility]AT[facility] Last Admin: 08/31/17 11:08 Dose: Not Given Zolpidem Tartrate (Ambien) 10 mg PO HS PRN; Protocol PRN Reason: Insomnia Last Admin: 08/30/17 23:23 Dose: 10 mg - Labs Labs: 08/31/17 05:30 08/31/17 05:30 - Additional Findings Additional findings: - Constitutional Appears: Well, Non-toxic, No Acute Distress - Head Exam Head Exam: ATRAUMATIC, NORMAL INSPECTION, NORMOCEPHALIC - Eye Exam Eye Exam: EOMI, Normal appearance Pupil Exam: NORMAL ACCOMODATION, PERRL - ENT Exam ENT Exam: Mucous Membranes Moist - Neck Exam Neck exam: Positive for: Full Rom - Respiratory Exam Respiratory Exam: Clear to Auscultation Bilateral, NORMAL BREATHING PATTERN. absent: Rales, Rhonchi, Wheezes - Cardiovascular Exam Cardiovascular Exam: REGULAR RHYTHM, +S1, +S2 - GI/Abdominal Exam GI & Abdominal Exam: Normal Bowel Sounds, Soft. absent: Guarding, Rebound, Rigid, Tenderness - Extremities Exam Extremities exam: Positive for: pedal pulses present. Negative for: calf tenderness Marked tenderness to superior and medial aspect of both knees, but less as compared to yesterday No erythema or effusions appreciated Full active ROM - Back Exam Back exam: NORMAL INSPECTION - Neurological Exam Neurological exam: Alert, Oriented x3 - Psychiatric Exam Psychiatric exam: Anxious, Normal Affect - Skin Skin Exam: Dry, Normal Color, Warm Assessment and Plan - Assessment and Plan (Free Text) Assessment: Patient is a 71 year old female with past medical history of L breast CA s/p tumor resection and radiation, hypothyroidism, HTN, HLD presents to the ED for chronic bilateral knee pain, unsteadiness and recurrent falls for the past 6 months. S/p bilateral knee injections with corticosteroids, improved pain, pending placement for [facility]IL[facility]. Plan: 1. 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 Hypokalemia - RESOLVE -K+ was 2.8 on admission, 3.7 today -EKG showed NSR at 92 bpm, no ST changes -Will continue to monitor BMPs closely -likely due to use of Trimaterene/HCTZ, will stop 3. Hypertension -Currently Normatensive -stopped triamterene/HCTZ due to hypoK, starting on Lisinopril 5mg daily -Continue to monitor 4. Hypothyroidism -Continue home medication 5. Breast CA s/p tumor resection, radiation -Continue Anasrozole 6. Hyperlipidemia -Continue Lipitor 10mg , ASA 81mg 7. Hypophosphatemia and Hypercalcemia -likely due to diuretic use and use of calcium supplementation, PTH intact ordered, f/u -stopping calcium use and diuretic in favor of lisinopril -Neutra Phos BID ordered as no IV access today Dispo: Med/Surg, pending placement for DENILSON FEN: Heart-healthy diet Access: Peripheral IV Consults: PT, Ortho Ppx: Protonix for GI, Lovenox for DVT Patient seen, reviewed, and discussed with attending, Dr. Lo. <John Lo - Last Filed: 08/31/17 16:13> Objective - Vital Signs/Intake and Output Vital Signs (last 24 hours): Temp Pulse Resp BP Pulse Ox 97.7 F 77 20 140/80 100 08/31/17 08:31 08/31/17 13:55 08/31/17 08:31 08/31/17 13:55 08/31/17 08:31 Intake and Output: 08/31/17 08/31/17 06:59 18:59 Intake Total 1140 Balance 1140 - Medications Medications: Current Medications Acetaminophen (Tylenol 325mg Tab) 650 mg PO Q6H PRN PRN Reason: Pain, Mild (1-3) Anastrozole (Arimidex 1 Mg Tab) 1 mg PO DAILY ON LICENSE OF [facility] Last Admin: 08/31/17 10:53 Dose: 1 mg Aspirin (Ecotrin) 81 mg PO DAILY ON LICENSE [facility] Last Admin: 08/31/17 10:52 Dose: 81 mg Atorvastatin Calcium (Lipitor) 10 mg PO DAILY ON [facility] Last Admin: 08/31/17 10:52 Dose: 10 mg Enoxaparin Sodium (Lovenox) 30 mg SC DAILY [facility] PRN Reason: Protocol Last Admin: 08/31/17 10:53 Dose: 30 mg Levothyroxine Sodium (Synthroid) 100 mcg PO ACB ON LICENSE OF [facility] Last Admin: 08/31/17 08:28 Dose: 100 mcg Lisinopril (Zestril) 5 mg PO DAILY ON LICENSE [facility] Last Admin: 08/31/17 13:55 Dose: 5 mg Oxycodone/Acetaminophen (Percocet 2.5/325 Mg Tab) 1 tab PO Q6H PRN PRN Reason: Pain, moderate (4-7) Last Admin: 08/31/17 13:46 Dose: 1 tab Pantoprazole Sodium (Protonix Inj) 40 mg IVP DAILY ON [facility] Last Admin: 08/31/17 11:08 Dose: Not Given Zolpidem Tartrate (Ambien) 10 mg PO HS PRN; Protocol PRN Reason: Insomnia Last Admin: 08/30/17 23:23 Dose: 10 mg - Labs Labs: 08/31/17 05:30 08/31/17 05:30 Attending/Attestation - Attestation I have personally seen and examined this patient.: Yes I have fully participated in the care of the patient.: Yes I have reviewed all pertinent clinical information, including history, physical exam and plan: Yes Notes (Text): 08/31/17 16:13 Patient was seen and examined with medical staff coordinator. Agreed with resident assessment and plan. Management plan was discussed in detail with patient Education was provided.
[2017-08-31 16:49] VITALS: BP 114/62; PULSE 82; TEMP 98; O2SAT 98
--- NOTE | 2017-08-31 17:04 | CP.PCM.DIS ---
<Danish Mc - Last Filed: 08/31/17 17:00> Provider - Provider Date of Admission: 08/30/17 01:01 Attending physician: John Lo MD Consults: Ortho: Doug Time Spent in preparation of Discharge (in minutes): 40 Diagnosis - Discharge Diagnosis (1) Frequent falls Status: Chronic Priority: High (2) Hypokalemia Status: Resolved Priority: Medium (3) Knee pain, bilateral Status: Chronic Priority: Medium (4) Osteoarthritis of knees, bilateral Status: Chronic Priority: High Hospital Course - Lab Results Lab Results: Micro Results 08/30/17 02:15 Urine Urine Culture - Preliminary Gram Positive Cocci Most Recent Lab Values WBC 9.8 10^3/ul (4.5-11.0) D 08/31/17 05:30 RBC 4.21 10^6/uL (3.5-6.1) 08/31/17 05:30 Hgb 12.3 g/dL (12.0-16.0) 08/31/17 05:30 Hct 37.0 % (36.0-48.0) 08/31/17 05:30 MCV 87.9 fl (80.0-105.0) 08/31/17 05:30 MCH 29.2 pg (25.0-35.0) 08/31/17 05:30 MCHC 33.2 g/dl (31.0-37.0) 08/31/17 05:30 RDW 16.5 % (11.5-14.5) H 08/31/17 05:30 Plt Count 363 10^3/uL (120.0-450.0) 08/31/17 05:30 MPV 10.2 fl (7.0-11.0) 08/31/17 05:30 Gran % 73.0 % (50.0-68.0) H 08/31/17 05:30 Lymph % (Auto) 24.8 % (22.0-35.0) 08/31/17 05:30 [place] % (Auto) 2.2 % (1.0-6.0) 08/31/17 05:30 Eos % (Auto) 0.0 % (1.5-5.0) L 08/31/17 05:30 Baso % (Auto) 0.0 % (0.0-3.0) 08/31/17 05:30 Gran # 7.13 (1.4-6.5) H 08/31/17 05:30 Lymph # 2.4 (1.2-3.4) 08/31/17 05:30 [place] # 0.2 (0.1-0.6) 08/31/17 05:30 Eos # 0.0 (0.0-0.7) 08/31/17 05:30 Baso # 0.00 K/mm3 (0.0-2.0) 08/31/17 05:30 Sodium 142 mmol/L (132-148) 08/31/17 05:30 Potassium 3.7 mmol/L (3.6-5.0) 08/31/17 05:30 Chloride 107 mmol/L (95-110) 08/31/17 05:30 Carbon Dioxide 28 mmol/L (21-33) 08/31/17 05:30 Anion Gap 11 (10-20) 08/31/17 05:30 BUN 17 mg/dL (7-21) 08/31/17 05:30 Creatinine 0.9 mg/dL (0.7-1.2) 08/31/17 05:30 Est GFR ( Amer) > 60 08/31/17 05:30 Est GFR (Non-Af Amer) > 60 08/31/17 05:30 POC Glucose (mg/dL) 107 mg/dL (65-110) 08/31/17 16:08 Random Glucose 165 mg/dL (70-110) H 08/31/17 05:30 Calcium 11.0 mg/dL (8.4-10.5) H 08/31/17 05:30 Phosphorus 1.6 mg/dL (2.5-4.5) L 08/31/17 05:30 Magnesium 2.2 mg/dL (1.7-2.2) 08/31/17 05:30 Total Bilirubin 0.9 mg/dL (0.2-1.3) 08/31/17 05:30 AST 28 U/L (14-36) 08/31/17 05:30 ALT 24 U/L (7-56) 08/31/17 05:30 Alkaline Phosphatase 128 U/L (38-126) H 08/31/17 05:30 Total Protein 7.6 g/dL (5.8-8.3) 08/31/17 05:30 Albumin 4.1 g/dL (3.0-4.8) 08/31/17 05:30 Globulin 3.6 gm/dL 08/31/17 05:30 Albumin/Globulin Ratio 1.1 (1.1-1.8) 08/31/17 05:30 Urine Color Yellow (YELLOW) 08/30/17 02:15 Urine Appearance Sl cloudy (CLEAR) 08/30/17 02:15 Urine pH 6.0 (4.7-8.0) 08/30/17 02:15 Ur Specific [place] 1.025 (1.005-1.035) 08/30/17 02:15 Urine Protein Trace mg/dL (<30 mg/dL) H 08/30/17 02:15 Urine Glucose (UA) Negative mg/dL (NEGATIVE) 08/30/17 02:15 Urine Ketones Trace mg/dL (NEGATIVE) H 08/30/17 02:15 Urine Blood Negative (NEGATIVE) 08/30/17 02:15 Urine Nitrate Negative (NEGATIVE) 08/30/17 02:15 Urine Bilirubin Small (NEGATIVE) H 08/30/17 02:15 Urine Urobilinogen 0.2 E.U./dL (<1 E.U./dL) 08/30/17 02:15 Ur Leukocyte Esterase Negative [place]/uL (NEGATIVE) 08/30/17 02:15 Urine RBC 0 - 2 /hpf (0-2) 08/30/17 02:15 Urine WBC 0 - 2 /hpf (0-6) 08/30/17 02:15 Ur Epithelial Cells 1 - 3 /hpf (0-5) 08/30/17 02:15 Calcium Oxalate Crystal Few /hpf 08/30/17 02:15 - Hospital Course Hospital Course: This is a 71 year old female with past medical history of L breast CA s/p tumor resection and radiation, hypothyroidism, HTN, and HLD who presents to the ED for chronic bilateral knee pain, unsteadiness and recurrent falls for the past 6 months. Potassium repleted, and was likely depleted due to use of triamterene/HCTZ. Diuretic stopped and patient switched to Lisinopril 5mg daily. Also switched to Percocet 2.5/325mg PRN q6h for pain. S/ p bilateral knee injections with corticosteroids, improved pain, now en route to subacute rehab. While here, she was also seen by Ortho, who recommended knee replacements. Patient elected to start with steroid injections and will follow up with ortho as outpatient. As per PT recs, she will be going for subacute rehab due to persisting gait unsteadiness despite the bilateral steroid injections. Patient instructed to only take Lisinopril for BP control, not to take further diuretics, and to stop taking her calcium and potassium supplements as well. Told to follow up with PMD within 1 week of discharge from sub-acute rehab. Patient expressed understanding and agreement, all questions answered to her satisfaction. She was then discharged to Sub-acute rehab. Discharge Exam - Additional Findings Additional findings: Please see physical exam from Hospitalist Progress Note for 08/31/17, unchanged exam from this AM. Discharge Plan - Discharge Medications Prescriptions: Lisinopril [Zestril] 5 mg PO DAILY #30 tab Phosphorus/Potassium/Sodium [Neutra-Phos] 1 pdr PO BID #6 packet - Follow Up Plan Condition: STABLE Disposition: REHAB FACILITY/REHAB UNIT Instructions: Osteoarthritis (DC), Steroid Joint Injection (DC) Additional Instructions: Please stop taking your Triamterene/Hydrocholrothiazide immediately. Please take the new blood pressure medication prescribed, Lisinopril, as instructed. You have been given a prescription for Neutra-Phos for 3 days to replete your low Phosphorous level, please take as instructed. Please follow up with your Primary Medical Doctor within 1 week of discharge. Please follow up with an Orthopedic Physician within 1 month. A referral to Dr. Camacho has been provided. If you experience worsening or new concerning symptoms, please return to a hospital. Home Medication List: Neutra-Phos 1 packet twice a day Lisinopril 5mg daily Arimidex 1 tab daily Lipitor 10mg daily B-Complex Vitamin daily Synthroid 100mcg tablet daily Prilosec 20mg daily Ambien 10mg Nightly Referrals: Antolin Camacho MD [Staff Provider] - <John Lo - Last Filed: 08/31/17 17:37> Provider - Provider Date of Admission: 08/30/17 01:01 Attending physician: John Lo MD Hospital Course - Lab Results Lab Results: Micro Results 08/30/17 02:15 Urine Urine Culture - Preliminary Gram Positive Cocci Most Recent Lab Values WBC 9.8 10^3/ul (4.5-11.0) D 08/31/17 05:30 RBC 4.21 10^6/uL (3.5-6.1) 08/31/17 05:30 Hgb 12.3 g/dL (12.0-16.0) 08/31/17 05:30 Hct 37.0 % (36.0-48.0) 08/31/17 05:30 MCV 87.9 fl (80.0-105.0) 08/31/17 05:30 MCH 29.2 pg (25.0-35.0) 08/31/17 05:30 MCHC 33.2 g/dl (31.0-37.0) 08/31/17 05:30 RDW 16.5 % (11.5-14.5) H 08/31/17 05:30 Plt Count 363 10^3/uL (120.0-450.0) 08/31/17 05:30 MPV 10.2 fl (7.0-11.0) 08/31/17 05:30 Gran % 73.0 % (50.0-68.0) H 08/31/17 05:30 Lymph % (Auto) 24.8 % (22.0-35.0) 08/31/17 05:30 [place] % (Auto) 2.2 % (1.0-6.0) 08/31/17 05:30 Eos % (Auto) 0.0 % (1.5-5.0) L 08/31/17 05:30 Baso % (Auto) 0.0 % (0.0-3.0) 08/31/17 05:30 Gran # 7.13 (1.4-6.5) H 08/31/17 05:30 Lymph # 2.4 (1.2-3.4) 08/31/17 05:30 [place] # 0.2 (0.1-0.6) 08/31/17 05:30 Eos # 0.0 (0.0-0.7) 08/31/17 05:30 Baso # 0.00 K/mm3 (0.0-2.0) 08/31/17 05:30 Sodium 142 mmol/L (132-148) 08/31/17 05:30 Potassium 3.7 mmol/L (3.6-5.0) 08/31/17 05:30 Chloride 107 mmol/L (95-110) 08/31/17 05:30 Carbon Dioxide 28 mmol/L (21-33) 08/31/17 05:30 Anion Gap 11 (10-20) 08/31/17 05:30 BUN 17 mg/dL (7-21) 08/31/17 05:30 Creatinine 0.9 mg/dL (0.7-1.2) 08/31/17 05:30 Est GFR ( Amer) > 60 08/31/17 05:30 Est GFR (Non-Af Amer) > 60 08/31/17 05:30 POC Glucose (mg/dL) 107 mg/dL (65-110) 08/31/17 16:08 Random Glucose 165 mg/dL (70-110) H 08/31/17 05:30 Calcium 11.0 mg/dL (8.4-10.5) H 08/31/17 05:30 Phosphorus 1.6 mg/dL (2.5-4.5) L 08/31/17 05:30 Magnesium 2.2 mg/dL (1.7-2.2) 08/31/17 05:30 Total Bilirubin 0.9 mg/dL (0.2-1.3) 08/31/17 05:30 AST 28 U/L (14-36) 08/31/17 05:30 ALT 24 U/L (7-56) 08/31/17 05:30 Alkaline Phosphatase 128 U/L (38-126) H 08/31/17 05:30 Total Protein 7.6 g/dL (5.8-8.3) 08/31/17 05:30 Albumin 4.1 g/dL (3.0-4.8) 08/31/17 05:30 Globulin 3.6 gm/dL 08/31/17 05:30 Albumin/Globulin Ratio 1.1 (1.1-1.8) 08/31/17 05:30 Urine Color Yellow (YELLOW) 08/30/17 02:15 Urine Appearance Sl cloudy (CLEAR) 08/30/17 02:15 Urine pH 6.0 (4.7-8.0) 08/30/17 02:15 Ur Specific [place] 1.025 (1.005-1.035) 08/30/17 02:15 Urine Protein Trace mg/dL (<30 mg/dL) H 08/30/17 02:15 Urine Glucose (UA) Negative mg/dL (NEGATIVE) 08/30/17 02:15 Urine Ketones Trace mg/dL (NEGATIVE) H 08/30/17 02:15 Urine Blood Negative (NEGATIVE) 08/30/17 02:15 Urine Nitrate Negative (NEGATIVE) 08/30/17 02:15 Urine Bilirubin Small (NEGATIVE) H 08/30/17 02:15 Urine Urobilinogen 0.2 E.U./dL (<1 E.U./dL) 08/30/17 02:15 Ur Leukocyte Esterase Negative [place]/uL (NEGATIVE) 08/30/17 02:15 Urine RBC 0 - 2 /hpf (0-2) 08/30/17 02:15 Urine WBC 0 - 2 /hpf (0-6) 08/30/17 02:15 Ur Epithelial Cells 1 - 3 /hpf (0-5) 08/30/17 02:15 Calcium Oxalate Crystal Few /hpf 08/30/17 02:15 Attending/Attestation - Attestation I have personally seen and examined this patient.: Yes I have fully participated in the care of the patient.: Yes I have reviewed all pertinent clinical information, including history, physical exam and plan: Yes Notes (Text): 08/31/17 17:31 Patient was seen and examined with spanish medical interpreter. Agreed with resident assessment and plan. 71 yrs old female with PMH of HTN,CA Breast,OA was admitted with history of worsening knee pain and fall at home due to bilateral knee pain.Patient never had any lose of consciousness.She was also found to have hypokalemia and mild hypercalemia. Patient was evaluated by Orthopediac and underwent intra articular steroid injection.Patient pain is better, she will be discharged to [facility] for rehabilitation and will follow up with ortho as she will need bilateral knee replacement. Her Hypokalemia was due to diuretics.Her HCTZ was discontinued and she has been started on lisinopril, she will need BMP in one week. Her hypercalcemia is mild 10.9 , she was taking calcium suppliments which ahs been discontinued.She is asymptomatic, will need repeat calcium level in one week. Management plan was discussed in detail with patient Education was provided.
== END 2017-08-31 21:25 | DRG 244 ==
LOC: ED 17:26 → ERH 08-30 01:01 → 3RNO 08-30 03:07
PROVIDERS: ADMIT Internal Medicine; ATTEND Internal Medicine
PROC: 3E0U33Z Introduction of Anti-inflammatory into Joints, Percutaneous Approach (ICD-10-PCS; principal; 2017-08-30)
PROC: 3E0U3BZ Introduction of Anesthetic Agent into Joints, Percutaneous Approach (ICD-10-PCS; 2017-08-30)
DX: M17.0 Bilateral primary osteoarthritis of knee (principal); E87.6 Hypokalemia; E83.39 Other disorders of phosphorus metabolism; I10 Essential (primary) hypertension; E83.52 Hypercalcemia; R29.6 Repeated falls; E78.5 Hyperlipidemia, unspecified; E03.9 Hypothyroidism, unspecified; G47.33 Obstructive sleep apnea (adult) (pediatric); R26.89 Other abnormalities of gait and mobility; F32.9 Major depressive disorder, single episode, unspecified; K21.9 Gastro-esophageal reflux disease without esophagitis; F41.9 Anxiety disorder, unspecified; G43.909 Migraine, unspecified, not intractable, without status migrainosus; Z85.3 Personal history of malignant neoplasm of breast; Z87.891 Personal history of nicotine dependence; Z79.82 Long term (current) use of aspirin; Z88.0 Allergy status to penicillin; Z88.2 Allergy status to sulfonamides